=== PATIENT | male | born 1965 | race Caucasian/White ===

== ENCOUNTER 2019-06-26 14:59 | Emergency (ER) | payer BC, OTHER ==
[2019-06-26] MEDS ORDERED: Diphtheria,Pertussis(Acell),Tetanus Vaccine 0.5 ML Syringe IM ONE (15:24)
--- NOTE | 2019-06-26 15:32 | EDM.PDOC ---
ED HPI GENERAL MEDICAL PROBLEM - General Chief Complaint: Laceration Stated Complaint: CUT ON RT HAND Time Seen by Provider: 06/26/19 15:00 Source of Information: Reports: Patient History Limitations: Reports: No Limitations - History of Present Illness INITIAL COMMENTS - FREE TEXT/NARRATIVE: HISTORY AND PHYSICAL: History of present illness: Patient is a 53-year-old male who presents to the ED today with concern of right hand laceration that occurred just prior to arrival to the ED. Patient states he was using a tool on a piece of sheet metal when his hand slipped and the sheet metal cut his hand. Patent states he wrapped his hand up immediately and came to the ED. States he is not up to date on tetanus. Patient states he is unable to move his thumb since the incident. Patient denies any other symptoms or concerns. Patient denies fever, chills, chest pain, shortness of breath, or cough. Denies headache, neck stiff ness, change in vision, syncope, or near syncope. Denies nausea, vomiting, abdominal pain, diarrhea, constipation, or dysuria. Has not noted any blood in urine or stool. Patient has been eating and drinking appropriately. Review of systems: As per history of present illness and below otherwise all systems reviewed and negative. Past medical history: As per history of present illness and as reviewed below otherwise noncontributory. Surgical history: As per history of present illness and as reviewed below otherwise noncontributory. Social history: See social history for further information Family history: As per history of present illness and as reviewed below otherwise noncontributory. Physical exam: General: Patient is alert, oriented, and in no acute distress. Patient sitting comfortably on exam table. HEENT: Atraumatic, normocephalic, pupils equal and reactive bilaterally, negative for conjunctival pallor or scleral icterus, mucous membranes moist, TMs normal bilaterally, throat clear, neck supple, nontender, trachea midline. No drooling or trismus noted. No meningeal signs. No hot potato voice noted. Lungs: Clear to auscultation, breath sounds equal bilaterally, chest nontender. Heart: S1S2, regular rate and rhythm without overt murmur Abdomen: Soft, nondistended, nontender. Negative for masses or hepatosplenomegaly. Negative for costovertebral tenderness. Pelvis: Stable nontender. Genitourinary: Deferred. Rectal: Deferred. Skin: Intact, warm, dry. No lesions or rashes noted. Extremities: There is a 5cm that extends from the lateral thenar area and extends over the dorsum/base of the right thumb. Patient holding right thumb in flexion and unable to extend the thumb. Full ROM of all other digits of the hand. Radial pulse grossly intact w/ cap refll < 2 seconds. Otherwise, atraumatic, negative for cords or calf pain. Neurovascular unremarkable. Neuro: Awake, alert, oriented. Cranial nerves II through XII unremarkable. Cerebellum unremarkable. Motor and sensory unremarkable throughout. Exam nonfocal. Notes: I called and spoke personally to Dr. Howe, hand specialist tongue carrier for [facility] in [place], and thoroughly discussed patient's case. Dr. Howe does feel that there is an extensor tendon injury of the right hand thumb and wants the laceration closed at this time with patient placed in a thumb spica splint and to have patient call Dr. Howe clinic tomorrow to establish an appointment time for follow-up. Discussed with patient the importance for follow-up with a hand specialist, Dr. Howe. Voices understanding and is agreeable to plan of care. Denies any further questions or concerns at this time. Diagnostics: hand XR Therapeutics: tdap, thumb spica splint-placed by nursing staff. To be worn until follow up with hand specialist, right hand. Prescription: Keflex Impression: Thumb laceration, right Extensor tendon hand injury, right Plan: 1. Rest, ice, elevate the affected extremity. You can apply ice 15 minutes on, 15 minutes off. Keep splint on until follow up with the hand specialist, Dr. Howe. 2. Tylenol and/or Ibuprofen as directed for pain management or discomfort. 3. Follow up with the hand specialist provider as discussed. Return to the ED as needed and as discussed. Definitive disposition and diagnosis as appropriate pending reevaluation and review of above. Right Hand Pain Score (Numeric/FACES): 2 - Related Data Allergies Allergy/AdvReac Type Severity Reaction Status Date / Time No Known Allergies Allergy Verified 06/26/19 15:20 Home Meds: Home Meds cephALEXin [Keflex] 500 mg PO BID 5 Days #10 cap 06/26/19 [Rx] Past Medical History - Past Health History Medical/Surgical History: Denies Medical/Surgical History Psychiatric History: Reports: None - Infectious Disease History Infectious Disease History: Reports: None Social & Family History - Tobacco Use Smoking Status *Q: Heavy Tobacco Smoker Years of Tobacco use: 35 Packs/Tins Daily: 1 - Recreational Drug Use Recreational Drug Use: No ED ROS GENERAL - Review of Systems Review Of Systems: Comprehensive ROS is negative, except as noted in HPI. ED EXAM, SKIN/RASH Exam: See Below (see dictation) Course - Vital Signs Last Recorded V/S: Last Vital Signs Temp 99.0 F 06/26/19 15:15 Pulse 86 06/26/19 15:15 Resp 19 06/26/19 15:15 BP 149/98 H 06/26/19 15:15 Pulse Ox 99 06/26/19 15:15 - Orders/Labs/Meds Orders: Active Orders 24 hr Category Date Time Status Vaccines to be Administered [RC] PER UNIT ROUTINE Care 06/26/19 15:24 Active DME for Discharge [COMM] Stat Oth 06/26/19 17:17 Ordered Meds: Medications Discontinued Medications Generic Name Dose Route Start Last Admin Trade Name Tiffanie PRN Reason Stop Dose Admin Bupivacaine HCl 10 ml 06/26/19 15:45 Sensorcaine-Mpf 0.5% INJECT 06/26/19 15:46 ONETIME ONE Diphtheria/Tetanus/Acell Pertussis 0.5 ml 06/26/19 15:24 06/26/19 15:41 Adacel IM 06/26/19 15:25 0.5 ml .ONCE ONE Administration Lidocaine HCl 5 ml 06/26/19 15:45 Xylocaine-Mpf 1% INJECT 06/26/19 15:46 ONETIME ONE Departure - Departure Time of Disposition: 17:30 Disposition: Home, Self-Care 01 Clinical Impression: Thumb laceration Qualifiers: Encounter type: initial encounter Damage to nail status: without damage Foreign body presence: without foreign body Laterality: right Qualified Code(s) : S61.011A - Laceration without foreign body of right thumb without damage to nail, initial encounter Injury of extensor tendon of right hand Qualifiers: Encounter type: initial encounter Qualified Code(s): S66.901A - Unspecified injury of unspecified muscle, fascia and tendon at wrist and hand level, right hand, initial encounter - Discharge Information Prescriptions: cephALEXin [Keflex] 500 mg PO BID 5 Days #10 cap Referrals: PCP,None [Primary Care Provider] - Forms: ED Department Discharge Additional Instructions: The following information is given to patients seen in the emergency department who are being discharged to home. This information is to outline your options for follow-up care. We provide all patients seen in our emergency department with a follow-up referral. The need for follow-up, as well as the timing and circumstances, are variable depending upon the specifics of your emergency department visit. If you don't have a primary care physician on staff, we will provide you with a referral. We always advise you to contact your personal physician following an emergency department visit to inform them of the circumstance of the visit and for follow-up with them and/or the need for any referrals to a consulting specialist. The emergency department will also refer you to a specialist when appropriate. This referral assures that you have the opportunity for follow-up care with a specialist. All of these measure are taken in an effort to provide you with optimal care, which includes your follow-up. Under all circumstances we always encourage you to contact your private physician who remains a resource for coordinating your care. When calling for follow-up care, please make the office aware that this follow-up is from your recent emergency room visit. If for any reason you are refused follow-up, please contact the [facility] Emergency Department at and asked to speak to the emergency department charge nurse. [facility] [address] [place] [id number] [id number] [address] Nick Howe MD Hand and Wrist Surgery [address] [facility] [address] 1. Rest, ice, elevate the affected extremity. You can apply ice 15 minutes on, 15 minutes off. Keep splint on until follow up with the hand specialist, Dr. Howe. Call Dr. Howe clinic in the morning to establish an appointment time. 2. Tylenol and/or Ibuprofen as directed for pain management or discomfort. 3. Follow up with the hand specialist provider as discussed. Return to the ED as needed and as discussed. Sepsis Event Note - Evaluation Sepsis Screening Result: No Definite Risk - Focused Exam Vital Signs: Vital Signs Temp Pulse Resp BP Pulse Ox 06/26/19 15:15 99.0 F 86 19 149/98 H 99 Date Exam was Performed: 06/26/19 Time Exam was Performed: 17:28 - My Orders Last 24 Hours: My Active Orders 06/26/19 15:24 Vaccines to be Administered [RC] PER UNIT ROUTINE 06/26/19 17:17 DME for Discharge [COMM] Stat - Assessment/Plan Last 24 Hours: My Active Orders 06/26/19 15:24 Vaccines to be Administered [RC] PER UNIT ROUTINE 06/26/19 17:17 DME for Discharge [COMM] Stat
[2019-06-26] MEDS ORDERED: Bupivacaine 0.5% 10 ML SDV INJECT ONE (15:45)
--- NOTE | 2019-06-26 15:58 | CR ---
Right hand: 2 views of the right hand were obtained. Comparison: No previous hand exam. Soft tissue injury is seen at the level of the mid metacarpal of the thumb. Joint spaces are maintained. No acute fracture or other abnormality is appreciated. Impression: 1. Soft tissue injury as described above. 2. No additional abnormality is identified on 2 view right hand exam. Diagnostic code #3 Study was dictated in MDT
== END 2019-06-26 17:50 | disposition home or self-care (01) ==
LOC: MW.ED 14:59
DX: S66.221A Laceration of extensor muscle, fascia and tendon of right thumb at wrist and hand level, initial encounter (principal); F17.210 Nicotine dependence, cigarettes, uncomplicated; Z23 Encounter for immunization; W26.8XXA Contact with other sharp object(s), not elsewhere classified, initial encounter
CPT/HCPCS: 29125; 73120; 90471; 90715; 99283; J2001; J3490